=== PATIENT | male | born 1965 | race Caucasian/White ===

== ENCOUNTER 2019-09-09 12:09 | Observation (INO) ==
[2019-09-09] MEDS ORDERED: Gadolinium Contrast Agent (WT Based) IV PRN (12:45)
[2019-09-09] MEDS ORDERED: *HR* Promethazine 25 MG/ML VIAL IVP ONE (12:45)
[2019-09-09] MEDS ORDERED: Ondansetron 4 MG/2 ML VIAL IVP ONE (12:45)
[2019-09-09 14:14] LABS: Hematocrit 41.3 % (37.5-50.1); Hemoglobin 13.6 g/dL (12.9-16.9); Immature Platelets 2.6 % (1.1-6.1); Mean Corpuscular HGB Conc 32.9 g/dL (31.6-35.5); Mean Corpuscular Hemoglobin 31.3 pg (28.0-33.3); Mean Corpuscular Volume 94.9 fL (83.0-100.0); Mean Platelet Volume 9.7 fL (9.4-12.4); Red Blood Count 4.35 M/mcL (4.19-5.50); Red Cell Distribution Width 13.4 % (11.5-14.5); White Blood Count 8.3 K/mcL (4.3-11.1)
[2019-09-09 14:37] LABS: BUN/Creatinine Ratio 22 (6-26); Blood Urea Nitrogen 22 mg/dL (6-20); Calcium 9.4 mg/dL (8.6-10.3); Carbon Dioxide 22 mEq/L (23-29); Chloride 101 mEq/L (98-107); Glucose 180 mg/dL (70-105); Osmolality,Calculated 286 (280-300); Potassium 4.4 mEq/L (3.5-5.1); Sodium 134 mEq/L (136-145); eGFR For African Americans > 60 (> 60); eGFR For Non-African Americans > 60 (> 60)
[2019-09-09] MEDS ORDERED: *HR* FentaNYL (PF) 100 MCG/2 ML VIAL IVP ONE (20:49)
[2019-09-09] MEDS ORDERED: Ondansetron 4 MG/2 ML VIAL IVP PRN (21:25)
[2019-09-09] MEDS ORDERED: Naloxone 0.4 MG/ML INJ IVP PRN (21:25)
[2019-09-09] MEDS ORDERED: D5% in Water 1,000 ML IVC PRN (22:31)
[2019-09-09] MEDS ORDERED: *HR* Dextrose 50 % in Water (Syg) 50 ML SYRINGE IVP PRN (22:31)
[2019-09-09] MEDS ORDERED: Dextrose Gel 15 GM/37.5 ML TUBE PO PRN ×2 (22:31)
[2019-09-09] MEDS: Insulin LISPRO 300 UNITS/3 ML VIAL SQ SCH (22:39)
[2019-09-10] MEDS: Ketorolac 30 MG/ML VIAL IVP PRN ×2 (03:40→23:43)
[2019-09-10 05:21] LABS: Basophils % 0.4 %; Eosinophils # 0.2 K/mcL (0.0-0.6); Eosinophils % 2.3 %; Hematocrit 41.8 % (37.5-50.1); Hemoglobin 13.8 g/dL (12.9-16.9); Immature Granulocytes % 0.8 % (0-4); Lymphocytes # 1.3 K/mcL (0.6-4.6); Lymphocytes % 12.9 %; Mean Corpuscular Hemoglobin 30.3 pg (28.0-33.3); Mean Corpuscular Volume 91.7 fL (83.0-100.0); Mean Platelet Volume 9.5 fL (9.4-12.4); Monocytes # 0.6 K/mcL (0.0-1.3); Monocytes % 6.2 %; Neutrophils # 7.6 K/mcL (1.6-8.9); Platelet Count 264 K/mcL (140-400); Red Blood Count 4.56 M/mcL (4.19-5.50); Red Cell Distribution Width 13.7 % (11.5-14.5); Segmented Neutrophils % 77.4 %; White Blood Count 9.8 K/mcL (4.3-11.1)
[2019-09-10 05:32] LABS: INR 0.9; Prothrombin Time 10.4 Seconds (9.4-12.1)
[2019-09-10 05:40] LABS: Alanine Aminotransferase 20 Units/L (7-52); Albumin 4.2 g/dL (3.5-5.7); Albumin/Globulin Ratio 1.4 (1.1-2.2); Alkaline Phosphatase 59 Units/L (34-104); Aspartate Amino Transferase 16 Units/L (13-39); BUN/Creatinine Ratio 22 (6-26); Bilirubin,Total 0.5 mg/dL (0.3-1.0); Blood Urea Nitrogen 24 mg/dL (6-20); Calcium 9.4 mg/dL (8.6-10.3); Carbon Dioxide 22 mEq/L (23-29); Chloride 97 mEq/L (98-107); Chol/HDL Ratio 7.7 (0-4.9); Cholesterol 184 mg/dL (< 200); Glucose 207 mg/dL (70-105); HDL Cholesterol 24 mg/dL (40-59); Osmolality,Calculated 286 (280-300); Potassium 4.4 mEq/L (3.5-5.1); Sodium 133 mEq/L (136-145); Total Protein 7.2 g/dL (6.4-8.9); Triglycerides 704 mg/dL (< 150); eGFR For African Americans > 60 (> 60); eGFR For Non-African Americans > 60 (> 60)
[2019-09-10] MEDS ORDERED: BUTALBIT PO PRN (08:38)
[2019-09-10] MEDS ORDERED: CODEINE PO PRN (08:38)
[2019-09-10] MEDS ORDERED: [UNRECOGNIZED DRUG - OTHER] PO PRN (08:38)
[2019-09-10] MEDS ORDERED: ACETAMIN PO PRN (08:38)
[2019-09-10] MEDS ORDERED: CAFF PO PRN (08:38)
[2019-09-10] MEDS: Insulin LISPRO 300 UNITS/3 ML VIAL SQ SCH ×3 (08:47→17:08)
[2019-09-10] MEDS ORDERED: Furosemide 40 MG TABLET PO SCH (09:00)
[2019-09-10] MEDS ORDERED: hydroCHLOROthiazide 25 MG TABLET PO SCH (09:00)
[2019-09-10 09:09] LABS: Estimated Average Glucose 292 mg/dl
[2019-09-10] MEDS: cloNIDine HCl 0.1 MG TABLET PO SCH ×2 (12:22→21:06)
[2019-09-10] MEDS: Acetaminophen/Aspirin/Caffeine TABLET PO PRN ×2 (12:22→17:08)
[2019-09-10] MEDS: Magnesium Oxide 400 MG TABLET PO SCH ×2 (12:22→21:07)
[2019-09-10] MEDS ORDERED: Isovue-370 500 ML BOTTLE IVP ONE (13:23)
[2019-09-10] MEDS ORDERED: Perflutren Lipid Microsphere 1.3 ML in 0.9 % Sodium Chloride 8.7 ML IVP ONE (15:57)
[2019-09-10] MEDS: *HR* Heparin 5,000 UNIT/ML VIAL SQ SCH (18:58)
[2019-09-10] MEDS ORDERED: Insulin DETEMIR 100 UNIT/ML X5UNITS SQ SCH (21:00)
[2019-09-11] MEDS: Acetaminophen/Aspirin/Caffeine TABLET PO PRN (05:08)
[2019-09-11] MEDS: *HR* Heparin 5,000 UNIT/ML VIAL SQ SCH (05:08)
[2019-09-11 06:14] LABS: BUN/Creatinine Ratio 28 (6-26); Blood Urea Nitrogen 29 mg/dL (6-20); Calcium 9.8 mg/dL (8.6-10.3); Carbon Dioxide 28 mEq/L (23-29); Chloride 96 mEq/L (98-107); Glucose 251 mg/dL (70-105); Osmolality,Calculated 296 (280-300); Potassium 4.2 mEq/L (3.5-5.1); Sodium 136 mEq/L (136-145); eGFR For African Americans > 60 (> 60); eGFR For Non-African Americans > 60 (> 60)
[2019-09-11] MEDS: Magnesium Oxide 400 MG TABLET PO SCH (08:02)
[2019-09-11] MEDS: Insulin LISPRO 300 UNITS/3 ML VIAL SQ SCH ×2 (08:03→11:47)
[2019-09-11] MEDS: cloNIDine HCl 0.1 MG TABLET PO SCH (08:03)
[2019-09-11] MEDS: Ketorolac 30 MG/ML VIAL IVP PRN (08:36)
[2019-09-11] MEDS ORDERED: Fenofibrate 54 MG TABLET PO SCH (09:00)
[2019-09-11 11:43] VITALS: BP 135/83
[2019-09-11] MEDS ORDERED: Insulin DETEMIR 100 UNIT/ML X5UNITS SQ SCH (21:00)
[2019-09-12 10:00] LABS: ANA IgG by ELISA NONE DETECTED (None Detected)
== END 2019-09-11 13:03 | disposition home or self-care (01) ==
LOC: 3BNU 12:09 → EMEROOARM 12:09 → 3BNU 21:30
PROVIDERS: ADMIT Student in an Organized Health Care Education/Training Program; ATTEND Student in an Organized Health Care Education/Training Program